=== PATIENT | male | born 1930 | race Caucasian/White ===

== ENCOUNTER 2019-03-07 16:46 | Observation (INO) ==
[2019-03-07 17:36] LABS: Basophils % 0.2 % (0.0-0.8); Hematocrit 33.1 VOL% (42.0-52.0); Hemoglobin 10.6 GM/DL (14.0-18.0); Immature Granulocytes % 0.7 %; Immature Granulocytes Absolute 0.03 #; Lymphocytes # 0.5 10*3/uL (1.4-4.0); Lymphocytes % 10.7 % (21.2-54.2); Mean Corpuscular Volume 97.1 FL (87-102); Mean Platelet Volume 10.1 FL (9.6-12.0); Monocytes % 10.7 % (1.7-12.7); NRBC # 0.02 10*3/uL; Neutrophils % 77.7 % (38.7-73.9); Platelet Count 102 T/CUMM (130-400); Red Blood Count 3.41 MC/CUMM (3.8-5.5); Red Cell Distribution Width 14.8 % (9.3-17.3); White Blood Count 4.6 T/CUMM (4-12)
[2019-03-07 17:49] LABS: Alanine Aminotransferase 22 U/L (16-61); Albumin 3.3 G/DL (3.4-5.0); Alkaline Phosphatase 82 U/L (45-117); Aspartate Amino Transferase 32 U/L (0-37); Blood Urea Nitrogen 41 MG/DL (7-18); Calcium 8.7 MG/DL (8.5-10.1); Glucose 133 MG/DL (74-106); Osmolality,Calculated 288.5 MOS/KG (273-304); Total Protein 7.2 G/DL (6.4-8.3)
[2019-03-07] MEDS ORDERED: cefTRIAXone 1,000 MG VIAL IM STA (18:01)
[2019-03-07 18:05] LABS: Apearance,Urine CLEAR (Clear); Bilirubin,Urine Negative (Negative); Blood, Urine Negative (Negative); Glucose,Urine (UA) Negative (Negative); Ketones,Urine Negative (Negative); Mucus,Urine Occasional /LPF (Occasional); Nitrite,Urine Negative (Negative); Protein,Urine Negative; Urine Color Yellow (Yellow); Urine Specific Gravity 1.011 (1.001-1.035); Urine Urobilinogen < 2.0 EU/DL (0.2-1.0)
[2019-03-07 18:07] LABS: Lymphocytes 14 % (20-55); Total Cells Counted 100
[2019-03-07 18:08] LABS: Hypochromasia Slight; Microcytosis Slight; Platelet Estimate Adequate; Segmented Neutrophils 76 % (50-85)
[2019-03-07 18:09] LABS: Polychromasia Few
[2019-03-07] MEDS ORDERED: diphenhydrAMINE CAP 25 MG CAPSULE PO PRN (21:37)
[2019-03-07] MEDS ORDERED: ACETAMINOPHEN 325 MG TABLET PO PRN (21:37)
[2019-03-07] MEDS ORDERED: NICOTINE 21 MG/24 HR PATCH TRANSDERM PRN (21:37)
[2019-03-07] MEDS ORDERED: guaiFENesin/DM ER 600-30 MG TABLET PO PRN (21:37)
[2019-03-07] MEDS ORDERED: ONDANSETRON 4 MG/2 ML VIAL IV PRN (21:37)
[2019-03-07] MEDS ORDERED: MORPHINE 4 MG/1 ML VIAL IV PRN (21:37)
[2019-03-07] MEDS: SODIUM CHLORIDE 0.9% 1,000 ML IV SCH (23:47)
[2019-03-08] MEDS ORDERED: ZINC OXIDE PASTE 113 GM TUBE TOP PRN (00:35)
[2019-03-08 06:08] LABS: Basophils % 0.2 % (0.0-0.8); Eosinophils % 0.2 % (0.00-10.9); Hematocrit 26.4 VOL% (42.0-52.0); Hemoglobin 8.6 GM/DL (14.0-18.0); Immature Granulocytes % 0.4 %; Immature Granulocytes Absolute 0.02 #; Lymphocytes # 0.9 10*3/uL (1.4-4.0); Lymphocytes % 18.4 % (21.2-54.2); Mean Corpuscular HGB Conc 32.6 GM/DL (32-36); Mean Corpuscular Volume 96.4 FL (87-102); Mean Platelet Volume 10.4 FL (9.6-12.0); Monocytes % 14.9 % (1.7-12.7); Neutrophils % 65.9 % (38.7-73.9); Red Blood Count 2.74 MC/CUMM (3.8-5.5); Red Cell Distribution Width 14.9 % (9.3-17.3); White Blood Count 4.8 T/CUMM (4-12)
[2019-03-08 06:21] LABS: Platelet Count 82 T/CUMM (130-400)
[2019-03-08 06:39] LABS: Albumin 2.7 G/DL (3.4-5.0); Bilirubin,Total 0.8 MG/DL (0.2-1.0); Calcium 8.2 MG/DL (8.5-10.1); Osmolality,Calculated 288.3 MOS/KG (273-304); Total Protein 5.9 G/DL (6.4-8.3)
[2019-03-08] MEDS: SODIUM CHLORIDE 0.9% 1,000 ML IV SCH (06:48)
[2019-03-08 07:16] LABS: Band Neutrophils 1 % (0-10); Lymphocytes 16 % (20-55); Platelet Estimate Decreased; Segmented Neutrophils 73 % (50-85); Total Cells Counted 100
[2019-03-08 07:17] LABS: Hypochromasia Slight; Macrocytosis Slight
[2019-03-08] MEDS ORDERED: SODIUM CHLORIDE 0.9% 1,000 ML IV PRN (09:53)
[2019-03-08] MEDS: ATENOLOL 25 MG TABLET PO SCH (10:32)
[2019-03-08] MEDS: ROSUVASTATIN 20 MG TABLET PO SCH (10:32)
[2019-03-08] MEDS: ALLOPURINOL 100 MG TABLET PO SCH (10:33)
[2019-03-08] MEDS: amLODIPine 2.5 MG TABLET PO SCH (10:33)
[2019-03-08] MEDS: ASPIRIN 325 MG TABLET PO SCH (10:33)
[2019-03-08] MEDS: GABAPENTIN 300 MG CAPSULE PO SCH ×2 (10:33→20:49)
[2019-03-08] MEDS: BUMETANIDE 1 MG TABLET PO SCH (10:33)
[2019-03-08] MEDS ORDERED: ASPIRIN CHEW 81 MG TABLET PO ONE (17:26)
[2019-03-08] MEDS ORDERED: ACETAMINOPHEN 500 MG TABLET PO ONE (18:36)
[2019-03-09 04:09] LABS: Basophils % 0.2 % (0.0-0.8); Eosinophils % 0.7 % (0.00-10.9); Hematocrit 30.8 VOL% (42.0-52.0); Hemoglobin 9.9 GM/DL (14.0-18.0); Immature Granulocytes % 0.5 %; Immature Granulocytes Absolute 0.02 #; Lymphocytes # 1.1 10*3/uL (1.4-4.0); Lymphocytes % 26.2 % (21.2-54.2); Mean Corpuscular HGB Conc 32.1 GM/DL (32-36); Mean Corpuscular Volume 94.8 FL (87-102); Mean Platelet Volume 9.7 FL (9.6-12.0); Monocytes % 13.8 % (1.7-12.7); NRBC # 0.02 10*3/uL; Neutrophils % 58.6 % (38.7-73.9); Red Blood Count 3.25 MC/CUMM (3.8-5.5); Red Cell Distribution Width 17.1 % (9.3-17.3); White Blood Count 4.1 T/CUMM (4-12)
[2019-03-09 04:16] LABS: Platelet Count 68 T/CUMM (130-400)
[2019-03-09 04:56] LABS: Hypochromasia 1+; Platelet Estimate Decreased
[2019-03-09 04:57] LABS: Macrocytosis Slight
[2019-03-09] MEDS: BUMETANIDE 1 MG TABLET PO SCH (10:29)
[2019-03-09] MEDS: ASPIRIN 325 MG TABLET PO SCH (10:30)
[2019-03-09] MEDS: ALLOPURINOL 100 MG TABLET PO SCH (10:30)
[2019-03-09] MEDS: GABAPENTIN 300 MG CAPSULE PO SCH (10:30)
[2019-03-09] MEDS: amLODIPine 2.5 MG TABLET PO SCH (10:30)
[2019-03-09] MEDS: ATENOLOL 25 MG TABLET PO SCH (10:31)
[2019-03-09] MEDS: ROSUVASTATIN 20 MG TABLET PO SCH (10:31)
[2019-03-09 12:13] VITALS: BP 135/44
== END 2019-03-09 13:17 | disposition home or self-care (01) ==
LOC: N.4E 16:46 → N.ED 16:46 → SUATTDRO 21:37 → N.4E 22:22
PROVIDERS: ADMIT Internal Medicine; ATTEND Internal Medicine

== ENCOUNTER 2019-04-01 02:17 | Observation (INO) ==
[2019-04-01] MEDS ORDERED: DILTIAZEM 25 MG/5 ML VIAL IV ONE (02:48)
[2019-04-01] MEDS ORDERED: ASPIRIN 325 MG TABLET PO STA (03:05)
[2019-04-01] MEDS ORDERED: DILTIAZEM 50 MG/10 ML VIAL IV STA (03:05)
[2019-04-01] MEDS ORDERED: MORPHINE 4 MG/1 ML VIAL IV STA (03:05)
[2019-04-01] MEDS ORDERED: ONDANSETRON 4 MG/2 ML VIAL IV STA (03:05)
[2019-04-01 03:34] LABS: Basophils % 0.2 % (0.0-0.8); Eosinophils % 0.7 % (0.00-10.9); Hematocrit 33.5 VOL% (42.0-52.0); Hemoglobin 10.8 GM/DL (14.0-18.0); Immature Granulocytes Absolute 0.06 #; Lymphocytes # 0.9 10*3/uL (1.4-4.0); Lymphocytes % 14.6 % (21.2-54.2); Mean Corpuscular HGB Conc 32.2 GM/DL (32-36); Mean Corpuscular Volume 97.7 FL (87-102); NRBC # 0.03 10*3/uL; Neutrophils % 67.5 % (38.7-73.9); Platelet Count 158 T/CUMM (130-400); Red Blood Count 3.43 MC/CUMM (3.8-5.5); Red Cell Distribution Width 17.6 % (9.3-17.3); White Blood Count 5.9 T/CUMM (4-12)
[2019-04-01 03:49] LABS: Albumin 3.2 G/DL (3.4-5.0); Bilirubin,Total 0.5 MG/DL (0.2-1.0); Calcium 8.8 MG/DL (8.5-10.1); Osmolality,Calculated 289.3 MOS/KG (273-304); Total Protein 6.6 G/DL (6.4-8.3)
[2019-04-01 03:55] LABS: Band Neutrophils 1 % (0-10); Eosinophils 2 % (0-10); Lymphocytes 15 % (20-55); Segmented Neutrophils 72 % (50-85); Total Cells Counted 100
[2019-04-01 03:56] LABS: Hypochromasia 1+; Macrocytosis Slight; Platelet Estimate Normal
[2019-04-01] MEDS ORDERED: ENOXAPARIN 100 MG/ML SYRINGE SUBCUT STA (04:07)
[2019-04-01] MEDS ORDERED: MORPHINE 4 MG/1 ML VIAL IV PRN (04:33)
[2019-04-01] MEDS ORDERED: NICOTINE 21 MG/24 HR PATCH TRANSDERM PRN (04:33)
[2019-04-01] MEDS ORDERED: diphenhydrAMINE CAP 25 MG CAPSULE PO PRN (04:33)
[2019-04-01] MEDS ORDERED: ONDANSETRON 4 MG/2 ML VIAL IV PRN (04:33)
[2019-04-01] MEDS ORDERED: BISACODYL 5 MG TABLET PO PRN (04:33)
[2019-04-01 05:19] LABS: PT Patient Result 10.9 SECS
[2019-04-01 05:42] LABS: Risk Ratio 2.03; VLDL CHOLESTEROL 10.8 MG/DL
[2019-04-01] MEDS: SODIUM CHLORIDE 0.9% 1,000 ML IV SCH ×2 (07:00→14:06)
[2019-04-01] MEDS ORDERED: ENOXAPARIN 100 MG/ML SYRINGE SUBCUT SCH (07:00)
[2019-04-01] MEDS: METOPROLOL TARTRATE 25 MG TABLET PO SCH ×3 (10:05→21:22)
[2019-04-01] MEDS: PANTOPRAZOLE 40 MG TABLET PO SCH ×2 (10:05→10:24)
[2019-04-01] MEDS ORDERED: amLODIPine 2.5 MG TABLET PO SCH (15:00)
[2019-04-01] MEDS: ASPIRIN EC 81 MG TABLET PO SCH (16:28)
[2019-04-01] MEDS: APIXABAN 2.5 MG TABLET PO SCH ×2 (16:28→21:22)
[2019-04-01] MEDS: ROSUVASTATIN 20 MG TABLET PO SCH (16:28)
[2019-04-01] MEDS: GABAPENTIN 300 MG CAPSULE PO SCH ×2 (17:20→21:22)
[2019-04-02 05:50] LABS: Basophils % 0.4 % (0.0-0.8); Eosinophils # 0.3 10*3/uL (0.0-0.87); Eosinophils % 3.5 % (0.00-10.9); Hematocrit 30.7 VOL% (42.0-52.0); Hemoglobin 9.6 GM/DL (14.0-18.0); Immature Granulocytes % 0.7 %; Immature Granulocytes Absolute 0.06 #; Lymphocytes # 0.8 10*3/uL (1.4-4.0); Mean Corpuscular HGB Conc 31.3 GM/DL (32-36); Mean Platelet Volume 9.9 FL (9.6-12.0); Monocytes % 11.6 % (1.7-12.7); NRBC # 0.03 10*3/uL; Neutrophils % 73.8 % (38.7-73.9); Platelet Count 132 T/CUMM (130-400); Red Blood Count 3.07 MC/CUMM (3.8-5.5); Red Cell Distribution Width 18.6 % (9.3-17.3)
[2019-04-02 06:11] LABS: Hypochromasia 1+
[2019-04-02 06:12] LABS: Macrocytosis Slight; Ovalocytes Slight; Platelet Estimate Normal
[2019-04-02 06:26] LABS: Calcium 8.3 MG/DL (8.5-10.1); Osmolality,Calculated 293.7 MOS/KG (273-304)
[2019-04-02] MEDS: GABAPENTIN 300 MG CAPSULE PO SCH (08:43)
[2019-04-02] MEDS: ROSUVASTATIN 20 MG TABLET PO SCH (08:43)
[2019-04-02] MEDS: METOPROLOL TARTRATE 25 MG TABLET PO SCH (08:43)
[2019-04-02] MEDS: PANTOPRAZOLE 40 MG TABLET PO SCH (08:43)
[2019-04-02] MEDS: ASPIRIN EC 81 MG TABLET PO SCH (08:43)
[2019-04-02] MEDS: APIXABAN 2.5 MG TABLET PO SCH (08:43)
[2019-04-02 11:21] VITALS: BP 132/59
== END 2019-04-02 14:10 | disposition home or self-care (01) ==
LOC: N.ED 02:17 → N.EDINP 02:17 → N.TELEN 05:50
PROVIDERS: ADMIT Internal Medicine; ATTEND Internal Medicine

== ENCOUNTER 2019-04-04 04:03 | Inpatient (IN) ==
[2019-04-04 05:04] LABS: Basophils # 0.1 10*3/uL (0.0-0.2); Basophils % 0.7 % (0.0-0.8); Eosinophils # 0.3 10*3/uL (0.0-0.87); Eosinophils % 1.8 % (0.00-10.9); Hematocrit 31.8 VOL% (42.0-52.0); Hemoglobin 10.1 GM/DL (14.0-18.0); Immature Granulocytes % 5.4 %; Lymphocytes # 1.2 10*3/uL (1.4-4.0); Lymphocytes % 6.5 % (21.2-54.2); Mean Corpuscular HGB Conc 31.8 GM/DL (32-36); Mean Corpuscular Volume 99.1 FL (87-102); Mean Platelet Volume 9.9 FL (9.6-12.0); Monocytes % 8.1 % (1.7-12.7); NRBC # 0.18 10*3/uL; Neutrophils % 77.5 % (38.7-73.9); Platelet Count 130 T/CUMM (130-400); Red Blood Count 3.21 MC/CUMM (3.8-5.5); Red Cell Distribution Width 18.1 % (9.3-17.3); White Blood Count 18.4 T/CUMM (4-12)
[2019-04-04 05:23] LABS: PT Patient Result 11.2 SECS
[2019-04-04 05:30] LABS: Anisocytosis 1+; Atypical Lymphocytes Few; Band Neutrophils 4 % (0-10); Eosinophils 3 % (0-10); Lymphocytes 6 % (20-55); Macrocytosis 1+; Nucleated Red Blood Cells 4 (0-5); Segmented Neutrophils 81 % (50-85); Total Cells Counted 100
[2019-04-04 05:31] LABS: Platelet Estimate Adequate
[2019-04-04 05:36] LABS: Albumin 3.3 G/DL (3.4-5.0); Bilirubin,Total 1.3 MG/DL (0.2-1.0); Calcium 8.6 MG/DL (8.5-10.1); Osmolality,Calculated 289.1 MOS/KG (273-304); Total Protein 6.8 G/DL (6.4-8.3)
[2019-04-04] MEDS ORDERED: NITROGLYCERIN SL 0.4 MG TABLET SL ONE (06:02)
[2019-04-04] MEDS ORDERED: DILTIAZEM 50 MG/10 ML VIAL IV ONE (06:10)
[2019-04-04] MEDS ORDERED: NITROGLYCERIN DRIP 50 MG/250 ML BOTTLE IV ONE (06:10)
[2019-04-04] MEDS ORDERED: DILTIAZEM 50 MG/10 ML VIAL IV STA (06:11)
[2019-04-04] MEDS: NITROGLYCERIN DRIP 50 MG/250 ML BOTTLE IV SCH (06:14)
[2019-04-04] MEDS ORDERED: ENOXAPARIN 80 MG/0.8 ML SYRINGE SUBCUT STA (06:16)
[2019-04-04] MEDS ORDERED: MIDAZOLAM 2 MG/2 ML VIAL ONE (06:36)
[2019-04-04] MEDS ORDERED: LIDOCAINE 1%/EPI INJ 20 ML VIAL ONE (06:36)
[2019-04-04] MEDS ORDERED: fentaNYL 100 MCG/2 ML VIAL ONE (06:36)
[2019-04-04] MEDS ORDERED: MAGNESIUM SULF RIDER 4 GM in PREMIX 1 EACH IV PRN (06:38)
[2019-04-04] MEDS ORDERED: POTASSIUM CHLORIDE 20 MEQ TABLET PO PRN (06:38)
[2019-04-04] MEDS ORDERED: MAGNESIUM SULF RIDER 2 GM in PREMIX 1 EACH IV PRN (06:38)
[2019-04-04] MEDS: dilTIAZem Drip 125 MG/125 ML PREMIX IV SCH (06:38)
[2019-04-04] MEDS ORDERED: NITROGLYCERIN DRIP 50 MG/250 ML BOTTLE IV PRN (06:41)
[2019-04-04] MEDS ORDERED: SODIUM CHLORIDE 0.45% 1,000 ML IV SCH (07:00)
[2019-04-04] MEDS ORDERED: dilTIAZem Drip 125 MG/125 ML PREMIX IV SCH (07:00)
[2019-04-04] MEDS ORDERED: ENOXAPARIN 60 MG/0.6 ML SYRINGE ONE (07:16)
[2019-04-04] MEDS ORDERED: HEPARIN/NACL 0.9% 2 UNITS/ML 500 ML IV ONE (07:38)
[2019-04-04] MEDS ORDERED: ceFAZolin 1,000 MG VIAL ONE (07:54)
[2019-04-04] MEDS: PANTOPRAZOLE 40 MG TABLET PO SCH (08:46)
[2019-04-04] MEDS: ALLOPURINOL 100 MG TABLET PO SCH (08:46)
[2019-04-04] MEDS: ROSUVASTATIN 20 MG TABLET PO SCH (08:46)
[2019-04-04] MEDS ORDERED: AMIODARONE INJ 450 MG in DEXTROSE 5% 241 ML IV SCH (09:00)
[2019-04-04] MEDS ORDERED: ENZALUTAMIDE 160 MG PO SCH (09:00)
[2019-04-04 11:51] LABS: Apearance,Urine CLEAR (Clear); Bilirubin,Urine Negative (Negative); Blood, Urine Negative (Negative); Glucose,Urine (UA) Negative (Negative); Ketones,Urine Negative (Negative); Nitrite,Urine Negative (Negative); Protein,Urine 30 MG/DL; RBC,Urine 1 /HPF (0-4); Squamous Epithelial Cell,Urine Occasional /HPF (0-10); Urine Color Yellow (Yellow); Urine Specific Gravity > 1.060 (1.001-1.035); WBC,Urine 1 /HPF (0-6)
[2019-04-04] MEDS: ENZALUTAMIDE 160 MG PO SCH (14:20)
[2019-04-04] MEDS: MORPHINE 4 MG/1 ML VIAL IV PRN ×2 (17:20→21:11)
[2019-04-04] MEDS: AMIODARONE INJ 450 MG in DEXTROSE 5% 241 ML IV SCH (18:43)
[2019-04-04] MEDS: ONDANSETRON 4 MG/2 ML VIAL IV PRN (21:04)
[2019-04-04] MEDS: METOPROLOL TARTRATE 25 MG TABLET PO SCH (21:04)
[2019-04-04] MEDS: CLORAZEPATE 3.75 MG TABLET PO PRN (23:03)
[2019-04-05] MEDS: MORPHINE 4 MG/1 ML VIAL IV PRN ×2 (01:31→12:21)
[2019-04-05 03:59] LABS: Basophils # 0.2 10*3/uL (0.0-0.2); Basophils % 0.6 % (0.0-0.8); Eosinophils # 0.2 10*3/uL (0.0-0.87); Eosinophils % 0.6 % (0.00-10.9); Hematocrit 27.5 VOL% (42.0-52.0); Hemoglobin 8.8 GM/DL (14.0-18.0); Immature Granulocytes Absolute 1.61 #; Lymphocytes # 1.4 10*3/uL (1.4-4.0); Lymphocytes % 5.2 % (21.2-54.2); Mean Corpuscular Volume 97.9 FL (87-102); Mean Platelet Volume 10.1 FL (9.6-12.0); Monocytes % 7.3 % (1.7-12.7); NRBC # 0.16 10*3/uL; Neutrophils % 80.3 % (38.7-73.9); Platelet Count 124 T/CUMM (130-400); Red Blood Count 2.81 MC/CUMM (3.8-5.5); Red Cell Distribution Width 18.2 % (9.3-17.3); White Blood Count 26.9 T/CUMM (4-12)
[2019-04-05 04:26] LABS: Albumin 2.7 G/DL (3.4-5.0); Bilirubin,Total 1.6 MG/DL (0.2-1.0); Calcium 7.8 MG/DL (8.5-10.1); Osmolality,Calculated 283.5 MOS/KG (273-304)
[2019-04-05 04:27] LABS: Risk Ratio 1.94; VLDL CHOLESTEROL 16.8 MG/DL
[2019-04-05 04:50] LABS: Anisocytosis 1+; Atypical Lymphocytes Few; Band Neutrophils 3 % (0-10); Lymphocytes 5 % (20-55); Metamyelocytes 1 %; Nucleated Red Blood Cells 2 (0-5); Segmented Neutrophils 85 % (50-85); Total Cells Counted 100
[2019-04-05 04:51] LABS: Platelet Estimate Decreased; Smudge Cells Few
[2019-04-05] MEDS: dilTIAZem Drip 125 MG/125 ML PREMIX IV SCH (07:34)
[2019-04-05] MEDS: AMIODARONE INJ 450 MG in DEXTROSE 5% 241 ML IV SCH (07:35)
[2019-04-05] MEDS ORDERED: APIXABAN 2.5 MG TABLET PO SCH (09:00)
[2019-04-05] MEDS ORDERED: CLOPIDOGREL 75 MG TABLET PO SCH (09:00)
[2019-04-05] MEDS: ROSUVASTATIN 20 MG TABLET PO SCH (09:07)
[2019-04-05] MEDS: AMIODARONE 200 MG TABLET PO SCH ×2 (09:07→20:26)
[2019-04-05] MEDS: ALLOPURINOL 100 MG TABLET PO SCH (09:07)
[2019-04-05] MEDS: ISOSORBIDE MONONITRATE 30 MG TABLET PO SCH (09:07)
[2019-04-05] MEDS: METOPROLOL TARTRATE 25 MG TABLET PO SCH ×2 (09:07→20:26)
[2019-04-05] MEDS: RANOLAZINE 500 MG TABLET PO SCH ×2 (09:07→20:26)
[2019-04-05] MEDS: PANTOPRAZOLE 40 MG TABLET PO SCH (09:08)
[2019-04-05] MEDS: ENZALUTAMIDE 160 MG PO SCH (09:08)
[2019-04-05] MEDS ORDERED: FUROSEMIDE 40 MG TABLET PO ONE (09:26)
[2019-04-05] MEDS: NITROGLYCERIN DRIP 50 MG/250 ML BOTTLE IV SCH (12:29)
[2019-04-05] MEDS: CLORAZEPATE 3.75 MG TABLET PO PRN (20:26)
[2019-04-06] MEDS: CLORAZEPATE 3.75 MG TABLET PO PRN ×2 (02:48→21:28)
[2019-04-06] MEDS ORDERED: INDOMETHACIN 25 MG CAPSULE PO ONE (08:39)
[2019-04-06] MEDS ORDERED: INDOMETHACIN 25 MG CAPSULE PO SCH (09:00)
[2019-04-06] MEDS: NITROGLYCERIN DRIP 50 MG/250 ML BOTTLE IV SCH (09:13)
[2019-04-06] MEDS: ENZALUTAMIDE 160 MG PO SCH (09:42)
[2019-04-06] MEDS: RANOLAZINE 500 MG TABLET PO SCH ×2 (09:43→21:28)
[2019-04-06] MEDS: COLCHICINE 0.6 MG CAPSULE PO SCH ×2 (09:43→21:28)
[2019-04-06] MEDS: ASPIRIN EC 81 MG TABLET PO SCH (09:43)
[2019-04-06] MEDS: ALLOPURINOL 100 MG TABLET PO SCH (09:44)
[2019-04-06] MEDS: ROSUVASTATIN 20 MG TABLET PO SCH (09:45)
[2019-04-06] MEDS: ISOSORBIDE MONONITRATE 30 MG TABLET PO SCH (09:45)
[2019-04-06] MEDS: PANTOPRAZOLE 40 MG TABLET PO SCH (09:45)
[2019-04-06] MEDS: CARVEDILOL 6.25 MG TABLET PO SCH ×2 (09:45→21:28)
[2019-04-06] MEDS: AMIODARONE 200 MG TABLET PO SCH ×2 (09:45→21:31)
[2019-04-06] MEDS: INDOMETHACIN 25 MG CAPSULE PO SCH ×2 (09:46→21:34)
[2019-04-06] MEDS ORDERED: SODIUM CHLORIDE 0.9% 1,000 ML IV PRN ×2 (14:27→15:15)
[2019-04-06 14:47] LABS: Basophils # 0.1 10*3/uL (0.0-0.2); Basophils % 0.4 % (0.0-0.8); Eosinophils # 0.1 10*3/uL (0.0-0.87); Eosinophils % 0.7 % (0.00-10.9); Hematocrit 26.1 VOL% (42.0-52.0); Hemoglobin 8.4 GM/DL (14.0-18.0); Immature Granulocytes % 5.1 %; Immature Granulocytes Absolute 0.95 #; Lymphocytes % 5.1 % (21.2-54.2); Mean Corpuscular HGB Conc 32.2 GM/DL (32-36); Mean Corpuscular Volume 98.1 FL (87-102); Mean Platelet Volume 9.7 FL (9.6-12.0); NRBC # 0.14 10*3/uL; Neutrophils % 78.7 % (38.7-73.9); Red Blood Count 2.66 MC/CUMM (3.8-5.5); Red Cell Distribution Width 18.4 % (9.3-17.3)
[2019-04-06 14:50] LABS: Platelet Count 112 T/CUMM (130-400)
[2019-04-06 14:51] LABS: White Blood Count 18.8 T/CUMM (4-12)
[2019-04-06 15:18] LABS: Hypochromasia Slight; Lymphocytes 7 % (20-55); Segmented Neutrophils 82 % (50-85); Total Cells Counted 100
[2019-04-06 15:19] LABS: Microcytosis Slight
[2019-04-06] MEDS ORDERED: FUROSEMIDE 40 MG/4 ML VIAL IV ONE (15:25)
[2019-04-06] MEDS: ONDANSETRON 4 MG/2 ML VIAL IV PRN (15:26)
[2019-04-06 15:50] LABS: Platelet Estimate Adequate
[2019-04-06 21:27] LABS: Hematocrit 29.5 VOL% (42.0-52.0); Hemoglobin 9.8 GM/DL (14.0-18.0)
[2019-04-07 05:21] LABS: Basophils # 0.1 10*3/uL (0.0-0.2); Basophils % 0.5 % (0.0-0.8); Eosinophils # 0.2 10*3/uL (0.0-0.87); Eosinophils % 1.3 % (0.00-10.9); Hemoglobin 9.9 GM/DL (14.0-18.0); Immature Granulocytes % 3.5 %; Lymphocytes # 0.9 10*3/uL (1.4-4.0); Mean Corpuscular Volume 96.5 FL (87-102); Mean Platelet Volume 10.5 FL (9.6-12.0); Monocytes % 8.9 % (1.7-12.7); NRBC # 0.13 10*3/uL; Neutrophils % 80.8 % (38.7-73.9); Platelet Count 100 T/CUMM (130-400); Red Blood Count 3.11 MC/CUMM (3.8-5.5); Red Cell Distribution Width 17.4 % (9.3-17.3); White Blood Count 17.3 T/CUMM (4-12)
[2019-04-07 05:35] LABS: Calcium 8.1 MG/DL (8.5-10.1); Osmolality,Calculated 292.3 MOS/KG (273-304)
[2019-04-07 05:42] LABS: Band Neutrophils 5 % (0-10); Eosinophils 1 % (0-10); Hypochromasia 1+; Lymphocytes 6 % (20-55); Microcytosis Slight; Nucleated Red Blood Cells 1 (0-5); Platelet Estimate Decreased; Segmented Neutrophils 78 % (50-85); Total Cells Counted 100
[2019-04-07] MEDS: RANOLAZINE 500 MG TABLET PO SCH (09:12)
[2019-04-07] MEDS: CARVEDILOL 6.25 MG TABLET PO SCH ×2 (09:13→21:41)
[2019-04-07] MEDS: ISOSORBIDE MONONITRATE 30 MG TABLET PO SCH (09:13)
[2019-04-07] MEDS: PANTOPRAZOLE 40 MG TABLET PO SCH (09:13)
[2019-04-07] MEDS: ROSUVASTATIN 20 MG TABLET PO SCH (09:13)
[2019-04-07] MEDS: ALLOPURINOL 100 MG TABLET PO SCH (09:13)
[2019-04-07] MEDS: AMIODARONE 200 MG TABLET PO SCH ×2 (09:13→21:41)
[2019-04-07] MEDS: ASPIRIN EC 81 MG TABLET PO SCH (09:13)
[2019-04-07] MEDS: ENZALUTAMIDE 160 MG PO SCH (09:14)
[2019-04-07] MEDS: INDOMETHACIN 25 MG CAPSULE PO SCH ×2 (09:23→21:42)
[2019-04-07] MEDS: CLORAZEPATE 3.75 MG TABLET PO PRN (21:42)
[2019-04-08 02:07] LABS: Calcium 7.6 MG/DL (8.5-10.1); Osmolality,Calculated 295.1 MOS/KG (273-304)
[2019-04-08 02:40] LABS: Basophils # 0.1 10*3/uL (0.0-0.2); Basophils % 0.5 % (0.0-0.8); Eosinophils # 0.3 10*3/uL (0.0-0.87); Eosinophils % 1.4 % (0.00-10.9); Hematocrit 29.6 VOL% (42.0-52.0); Hemoglobin 9.6 GM/DL (14.0-18.0); Immature Granulocytes % 4.6 %; Immature Granulocytes Absolute 0.85 #; Lymphocytes # 1.1 10*3/uL (1.4-4.0); Lymphocytes % 5.7 % (21.2-54.2); Mean Corpuscular HGB Conc 32.4 GM/DL (32-36); Mean Platelet Volume 10.3 FL (9.6-12.0); Monocytes % 6.3 % (1.7-12.7); NRBC # 0.12 10*3/uL; Neutrophils % 81.5 % (38.7-73.9); Red Blood Count 3.05 MC/CUMM (3.8-5.5); Red Cell Distribution Width 17.5 % (9.3-17.3); White Blood Count 18.6 T/CUMM (4-12)
[2019-04-08 02:43] LABS: Platelet Count 97 T/CUMM (130-400)
[2019-04-08 05:18] LABS: Band Neutrophils 13 % (0-10); Lymphocytes 7 % (20-55); Metamyelocytes 2 %; Segmented Neutrophils 73 % (50-85); Total Cells Counted 100
[2019-04-08 05:20] LABS: Platelet Estimate Decreased
[2019-04-08] MEDS: PANTOPRAZOLE 40 MG TABLET PO SCH (09:10)
[2019-04-08] MEDS: ENZALUTAMIDE 160 MG PO SCH (09:10)
[2019-04-08] MEDS: ASPIRIN EC 81 MG TABLET PO SCH (09:11)
[2019-04-08] MEDS: AMIODARONE 200 MG TABLET PO SCH ×2 (09:11→21:02)
[2019-04-08] MEDS: ALLOPURINOL 100 MG TABLET PO SCH (09:12)
[2019-04-08] MEDS: ISOSORBIDE MONONITRATE 30 MG TABLET PO SCH (09:12)
[2019-04-08] MEDS: CARVEDILOL 6.25 MG TABLET PO SCH ×2 (09:12→21:02)
[2019-04-08] MEDS: ROSUVASTATIN 20 MG TABLET PO SCH (09:12)
[2019-04-08] MEDS: INDOMETHACIN 25 MG CAPSULE PO SCH ×2 (09:13→21:01)
[2019-04-08] MEDS: CLORAZEPATE 3.75 MG TABLET PO PRN (11:45)
[2019-04-08] MEDS: LISINOPRIL 5 MG TABLET PO SCH (14:14)
[2019-04-09 06:00] LABS: Basophils # 0.1 10*3/uL (0.0-0.2); Basophils % 0.3 % (0.0-0.8); Eosinophils # 0.3 10*3/uL (0.0-0.87); Eosinophils % 1.9 % (0.00-10.9); Hematocrit 28.9 VOL% (42.0-52.0); Hemoglobin 9.6 GM/DL (14.0-18.0); Immature Granulocytes % 5.2 %; Immature Granulocytes Absolute 0.81 #; Lymphocytes # 0.9 10*3/uL (1.4-4.0); Lymphocytes % 5.9 % (21.2-54.2); Mean Corpuscular HGB Conc 33.2 GM/DL (32-36); Mean Corpuscular Volume 97.3 FL (87-102); Mean Platelet Volume 10.7 FL (9.6-12.0); Monocytes % 6.1 % (1.7-12.7); NRBC # 0.08 10*3/uL; Neutrophils % 80.6 % (38.7-73.9); Red Blood Count 2.97 MC/CUMM (3.8-5.5); Red Cell Distribution Width 17.7 % (9.3-17.3); White Blood Count 15.6 T/CUMM (4-12)
[2019-04-09 06:08] LABS: Platelet Count 92 T/CUMM (130-400)
[2019-04-09 06:18] LABS: Band Neutrophils 3 % (0-10); Hypochromasia 1+; Lymphocytes 5 % (20-55); Nucleated Red Blood Cells 1 (0-5); Platelet Estimate Decreased; Segmented Neutrophils 88 % (50-85); Total Cells Counted 100
[2019-04-09 06:19] LABS: Microcytosis Slight
[2019-04-09 06:23] LABS: Calcium 8.3 MG/DL (8.5-10.1); Osmolality,Calculated 302.8 MOS/KG (273-304)
[2019-04-09] MEDS: ASPIRIN EC 81 MG TABLET PO SCH (09:59)
[2019-04-09] MEDS: ISOSORBIDE MONONITRATE 30 MG TABLET PO SCH (09:59)
[2019-04-09] MEDS: PANTOPRAZOLE 40 MG TABLET PO SCH (09:59)
[2019-04-09] MEDS: INDOMETHACIN 25 MG CAPSULE PO SCH (09:59)
[2019-04-09] MEDS: LISINOPRIL 5 MG TABLET PO SCH (09:59)
[2019-04-09] MEDS: CARVEDILOL 6.25 MG TABLET PO SCH (10:00)
[2019-04-09] MEDS: AMIODARONE 200 MG TABLET PO SCH (10:00)
[2019-04-09] MEDS: ENZALUTAMIDE 160 MG PO SCH (10:00)
[2019-04-09] MEDS: ROSUVASTATIN 20 MG TABLET PO SCH (10:00)
[2019-04-09] MEDS: ALLOPURINOL 100 MG TABLET PO SCH (10:05)
[2019-04-09 15:49] VITALS: BP 109/45
[2019-04-10] MEDS ORDERED: AMIODARONE 200 MG TABLET PO SCH (09:00)
== END 2019-04-09 16:35 | disposition home health service (06) | DRG 281 ==
LOC: N.ED 04:03 → SUATTDRO 06:38 → N.EDINP 06:38 → N.CC 06:49 → N.TELEN 04-07 12:42
PROVIDERS: ADMIT Internal Medicine Interventional Cardiology; ATTEND Internal Medicine
PROC: CLCCHCL (ICD-10-PCS; 2019-04-04 07:15)